=== PATIENT | female | born 1995 | race Caucasian/White ===

== ENCOUNTER → 2017-03-23 | Outpatient (CLI) | payer BC | LOC: BMCIMAGING 12:44 | PROVIDERS: ATTEND Family Medicine | DX: M25.521 Pain in right elbow (principal) ==

== ENCOUNTER 2018-06-30 10:21 | Emergency (ER) | payer BC ==
[2018-06-30 10:30] VITALS: BP 113/76
--- NOTE | 2018-06-30 10:39 | EDPHY ---
H & P Stated Complaint: crush inj yest to L 2nd/3rd fingers, today fell down 3 steps, now bleeding Time Seen by Provider: 06/30/18 10:39 HPI/ROS: CHIEF COMPLAINT: Bleeding dressing HISTORY OF PRESENT ILLNESS: The patient was seen yesterday in the emergency department for evaluation of lacerations to her left 2nd and 3rd fingers. She slipped last night and developed some bleeding in the gauze which was applied yesterday. Additionally patient did take Percocet after waking up today and did developed some transient lightheadedness and nausea which have resolved. The patient is scheduled to follow up with Dr. Zee from Hand surgery. She denies any additional acute complaints. REVIEW OF SYSTEMS: A comprehensive 10 point review of systems is otherwise negative aside from elements mentioned in the history of present illness. Source: Patient Exam Limitations: No limitations - Medical/Surgical History Hx Asthma: No Hx Chronic Respiratory Disease: No Hx Diabetes: No Hx Cardiac Disease: No Hx Renal Disease: No Hx Cirrhosis: No Hx Alcoholism: No Hx HIV/AIDS: No Hx Splenectomy or Spleen Trauma: No Other PMH: adhd, tonsillectomy - Social History Smoking Status: Never smoked - Physical Exam Exam: General Appearance: Alert, no distress Skin: Dressing was taken down, lacerations appear intact without bleeding Extremities: No tendon deficit appreciated Neurological: Motor and sensory function intact in the left upper extremity Constitutional: Initial Vital Signs Temperature (C) 36.6 C 06/30/18 10:27 Heart Rate 91 06/30/18 10:27 Respiratory Rate 18 06/30/18 10:27 Blood Pressure 113/76 06/30/18 10:27 O2 Sat (%) 94 06/30/18 10:27 O2 Delivery Mode Room Air Allergies/Adverse Reactions: No Known Allergies Allergy (Verified 06/30/18 10:31) Home Medications: Medication Instructions Recorded Control 01/04/16 Cephalexin [Keflex (*)] 500 mg PO QID #28 cap 06/29/18 oxyCODONE HCL/ACETAMINOPHEN 1 each PO Q4-6PRN PRN #13 tablet 06/29/18 [Percocet 5-325 mg Tablet] VYVANSE 06/30/18 Medical Decision Making ED Course/Re-evaluation: Patient presents to the ED for laceration recheck. Her dressing was taken down. There is no evidence of active bleeding. The patient's wound was redressed. She is going to follow up with Dr. Zee from Hand surgery. She is currently on appropriate antibiotics. Departure - Departure Disposition: Home, Routine, Self-Care Clinical Impression: Laceration of left hand Condition: Good Instructions: Care For Your Stitches (DC) Additional Instructions: 1. Continue antibiotics and pain medications as prescribed. I would recommend using Tylenol and ibuprofen instead of Percocet. 2. Please follow up with Dr. Zee from Hand surgery for a recheck. 3. Return to the ED for any increasing pain, fever or swelling. Referrals: Vasyl Zee MD [Medical Doctor] - As per Instructions
== END 2018-06-30 11:14 | disposition home or self-care (01) ==
DX: Z48.00 Encounter for change or removal of nonsurgical wound dressing (principal)